=== PATIENT | female | born 1975 | race Caucasian/White ===

== ENCOUNTER 2016-03-18 23:54 | Observation (INO) | payer MEDICARE ==
[~2016-03-18] VITALS: Ht 160 cm; Wt 40.8 kg
[~2016-03-18 23:54] MED LIST: BISA10SU3 RECTAL; MILKSUS PO; ONDA4TAB7 PO; PERC7.5T13 PO; PROC25SU22 RECTAL; PROT40TA PO; SENN1TAB PO; [UNRECOGNIZED DRUG - CODE] PO
[2016-03-19] MEDS ORDERED: DEXA4TAB PO (00:03)
[2016-03-19 04:11] VITALS: BP 119/79; PULSE 78; RESP 19; TEMP 96.7; O2SAT 99
[2016-03-19] MEDS ORDERED: NALOXONE HCL 0.4 MG/ML AMP IV PRN (05:45)
[2016-03-19] MEDS ORDERED: BISACODYL 10 MG SUPP RECTAL PRN (05:45)
[2016-03-19] MEDS ORDERED: ONDANSETRON HCL 4 MG/2 ML VIAL IV PUSH PRN (05:45)
[2016-03-19] MEDS ORDERED: SODIUM CHLORIDE 0.9% FLUSH 5 ML FLUSH FLUSH PRN (05:45)
[2016-03-19] MEDS ORDERED: PROCHLORPERAZINE 25 MG SUPP RECTAL PRN (05:45)
[2016-03-19] MEDS: DEXAMETHASONE SOD PHOS 4 MG/ML VIAL IV PUSH SCH ×2 (06:07→11:53)
[2016-03-19] MEDS: HYDROmorphone HCL PF 1 MG/ML VIAL IV PUSH PRN ×4 (06:07→17:01)
[2016-03-19 08:00] VITALS: BP 121/80; PULSE 77; RESP 18; TEMP 97.4; O2SAT 97
[2016-03-19 08:00] LABS: BASOPHIL % 0.3 % (0.0-2.0); HEMATOCRIT 39.2 % (35.0-46.0); HEMO FLAGS DIFF FINAL; LYMPH % 5.8 % (9.0-44.0); LYMPHOCYTE # 0.6 TH/MM3 (1.0-4.8); MEAN CELL VOLUME 84.9 FL (80.0-100.0); MEAN CORPUSCULAR HEMOGLOBIN 29.5 PG (27.0-34.0); MEAN CORPUSCULAR HGB CONC 34.8 % (32.0-36.0); NEUT % 91.9 % (16.0-70.0); PLATELET COUNT 449 TH/MM3 (150-450); RED BLOOD COUNT 4.61 MIL/MM3 (4.00-5.30); RED CELL DISTRIBUTION WIDTH 14.3 % (11.6-17.2); WHITE BLOOD COUNT 10.8 TH/MM3 (4.0-11.0)
[2016-03-19 08:28] LABS: POTASSIUM 4.4 MEQ/L (3.5-5.1)
[2016-03-19] MEDS ORDERED: PANTOPRAZOLE SOD 40 MG DELAYED RELEASE TAB PO SCH (09:00)
[2016-03-19] MEDS ORDERED: SODIUM CHLORIDE 0.9% FLUSH 5 ML FLUSH FLUSH SCH (09:00)
--- NOTE | 2016-03-19 11:06 | HHI.HP ---
[facility] Admission Diagnosis Diagnoses: (1) Glioma of brainstem (2) Headache (3) Obstructive hydrocephalus (4) Neurofibromatosis type II (5) Impaired cognition (6) Brain mass Chief Complaint: Headache Travel History International Travel<30 Days: No Contact w/Intl Traveler <30 Da: No Traveled to Known Affected Are: No History of Present Illness 40-year-old female with a medical history significant for neurofibromatosis, glioma of the brain stem, kidney stones, impaired cognitive function. The patient was transferred to the medical floor from [facility]. The patient was initially admitted there on 03/13/16 for comprehensive rehabilitation after she was discharged from the [facility] after undergoing decompressive ventriculostomy for hydrocephalus. During her stay at the rehabilitation facility, over the past couple of days she has been having increasing headache. Last night she was noted to have nausea and nystagmus. The patient was admitted to the medical floor for IV steroid until transfer can be a ranch back to [facility] for continuing treatment. The patient is seen in her room. Currently complains of a headache that is unchanged compared to yesterday and noted that she is due for her pain medication. She can answer yes or no questions and have a simple conversation. She deferred to her mother at bedside for most of the history. They both indicated that they want to go back to [facility] to continue her care. Currently she denies dizziness or any focal weakness. No shortness of breath, no nausea and no change in her vision. 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 Left facial nerve surgeries for neurofibroma lesions Allergies: Coded Allergies: Morphine (Verified Allergy, Mild, 03/13/16) Codeine (Verified Allergy, Unknown, 01/08/16) *MDRO Multi-Drug Resistant Organism (Verified Adverse Reaction, Unknown, ) ESBL E.Coli (urine)-03/13/16 Family History Mother with history of spasmodic torticollis and facial dystonia Patient has 2 children one of whom at the age of 17 from neurofibromatosis. She has a female daughter who is 21 and alive and well. Social History No tobacco or alcohol. She admits to occasional marijuana use. Physical Exam Vital Signs Vital Signs Date Time Temp Pulse Resp B/P Pulse Ox O2 Delivery O2 Flow Rate FiO2 03/19/16 08:00 97.4 77 18 121/80 97 03/19/16 04:11 96.7 78 19 119/79 99 Physical Exam GENERAL: Cachectic appearing female. SKIN: Multiple macular lesions involving the left face HEAD: Right frontal area with a healing incision. Stitches in place. Left facial defect from extensive surgery in the frontotemporal region and around the eye. EYES: Pupils equal round and reactive. Extraocular motions intact. ENT: Nose without drainage. Throat without erythema, tonsillar hypertrophy or exudate. Uvula midline. Airway patent. NECK: Trachea midline. No JVD or lymphadenopathy. Supple, nontender, no meningeal signs. CARDIOVASCULAR: Regular rate and rhythm without murmurs, gallops, or rubs. RESPIRATORY: Clear to auscultation. Breath sounds equal bilaterally. No wheezes , rales, or rhonchi. GASTROINTESTINAL: Abdomen soft, non-tender, nondistended. No hepato-splenomegaly , or palpable masses. No guarding. MUSCULOSKELETAL: Extremities without clubbing, cyanosis, or edema. No joint tenderness, effusion, or edema noted. No calf tenderness. Negative Homans sign bilaterally. NEUROLOGICAL: Awake and alert. Cranial nerves II through XII intact. Motor and sensory grossly within normal limits. Five out of 5 muscle strength in all muscle groups. Normal speech. Laboratory Laboratory Tests Test 03/19/16 07:40 White Blood Count 10.8 Red Blood Count 4.61 Hemoglobin 13.6 Hematocrit 39.2 Mean Corpuscular Volume 84.9 Mean Corpuscular Hemoglobin 29.5 Mean Corpuscular Hemoglobin 34.8 Concent Red Cell Distribution Width 14.3 Platelet Count 449 Mean Platelet Volume 7.4 Neutrophils (%) (Auto) 91.9 Lymphocytes (%) (Auto) 5.8 Monocytes (%) (Auto) 2.0 Eosinophils (%) (Auto) 0.0 Basophils (%) (Auto) 0.3 Neutrophils # (Auto) 10.0 Lymphocytes # (Auto) 0.6 Monocytes # (Auto) 0.2 Eosinophils # (Auto) 0.0 Basophils # (Auto) 0.0 CBC Comment DIFF FINAL Differential Comment Sodium Level 138 Potassium Level 4.4 Chloride Level 106 Carbon Dioxide Level 23.0 Anion Gap 9 Blood Urea Nitrogen 14 Creatinine 0.83 Estimat Glomerular Filtration 76 Rate Random Glucose 111 Calcium Level 9.5 Result Diagram: 03/19/16 0740 03/19/16 0740 Imaging Brain MRI from 03/18/16: Progression of the patient's known disease involving the CP angle on the left extending down to the brainstem to the level of the cerebral peduncles. Assessment and Plan Problem List: (1) Glioma of brainstem ICD Code: C71.7 Status: Chronic (2) Headache ICD Code: R51 Status: Acute (3) Neurofibromatosis type II ICD Code: Q85.02 Status: Chronic (4) Brain mass ICD Code: G93.9 Status: Acute (5) Hydrocephalus in adult ICD Code: G91.9 Status: Acute Assessment and Plan 40-year-old female with neurofibromatosis and glioma involving the brain stem. Patient was admitted to [facility] for comprehensive rehabilitation. However she continues to have persistent headache and nausea. Brain MRI revealed progression of the patient's glioma involving the brain stem. Plan: I discussed the case with Dr. Ayoub and Elva SANDERS from [facility] was been in contact with the patient's oncologist at [facility]. Best plan would be to have the patient transferred to the [facility] to resume her medical care there. - Meanwhile we will continue with IV Decadron and Dilaudid IV for pain control. - Consult case management to arrange for transfer. Armando Gupta MD Mar 19, 2016 11:06
[2016-03-19 12:00] VITALS: BP 115/80; PULSE 81; RESP 19; TEMP 97.6; O2SAT 98
[2016-03-19 15:42] VITALS: BP 120/70; PULSE 81; RESP 18; TEMP 97.6; O2SAT 98
--- NOTE | 2016-03-19 17:18 | RC ---
cc: JAM LINDQUIST MD, RONALD J. M.D. DEVERAS, RUBY ANNE E. M.D. DATE OF SERVICE 03/19/2016 DATE OF 1975 DIAGNOSES 1. Brainstem glioma. 2. Headache. 3. Obstructive hydrocephalus. 4. Neurofibromatosis type 2. 5. Impaired cognition. 6. Brain mass. BRIEF HISTORY This is a lady who was transferred from [facility] to the general inpatient setting. She has a long history of neurofibromatosis type 2 with left facial nerve surgeries for neurofibroma lesions and impaired vision of the left eye with left facial weakness. She has also been diagnosed with a brainstem glioma for approximately 15 years, although it is my understanding no biopsy has been performed in that time period. She was recently transferred from the [facility] after undergoing a third ventriculostomy on 03/05/2016 and she was brought to [facility] for recovery and rehabilitation. Since being in the hospital, however with admission date March 13 she has developed headaches associated with vomiting and some symptoms of insomnia. On 03/18/2016 she had a repeat MRI of her brain performed showing progression of the patient's known disease involving the ___ angle on the left extending into the brainstem to the level of the cerebral peduncles. At that point [facility] was in contact with her physicians at the [facility] and it was decided to transfer her to the acute care setting in preparation for transfer back to [facility]. In discussing this with a sister and mother who was present today this patient has had discussions with [facility]. The point of rehab was to try to build her strength so that she could then go on and have some further neurosurgical procedures followed by radiation treatment. At this time as she is deteriorating, the immediate consideration is whether she should be proceeding with treatment at this time, but she has a team involved at the [facility] to advise her on this. I have discussed this with her nurse today and the inward toll operator and they are in the process of arranging a transfer although the whole process has not been completed. PAST MEDICAL AND SURGICAL HISTORY Includes: 1. Type 2 neurofibromatosis. 2. Presumed glioma of the brain stem. 3. Kidney stones. 4. She has had endoscopic third ventriculostomy on 03/05/2016. 5. Lithotripsies and cystoscopy for kidney stones. 6. Left facial nerve surgeries for neurofibroma. ALLERGIES INCLUDE MORPHINE, CODEINE AND SHE HAS MULTIPLE DRUG RESISTANCE TO E-COLI. FAMILY HISTORY AND SOCIAL HISTORY There is no tobacco or alcohol use, although there is a history of occasional marijuana use. The mother has a history of spasmodic torticollis and facial dystonia. The patient herself has two children, one of whom at age 17 from neurofibromatosis and a female daughter who is alive and well. PHYSICAL EXAMINATION The patient is a cachectic female. She has scars on her left facial region from multiple surgeries. She is awake and responsive. At this point there is very little for radiation treatment to offer her at this facility. She has a team of physicians who know her case and are going to see to her care when she is transferred to [facility]. I have discussed this at length with the family. They had multiple questions which I was able to answer for them and for which they were grateful. At this junction I will discharge from her care. Thank you nevertheless for asking us to see her and be able to help the family with their questions they have. Denis Diaz MD Radiation Oncologist RORY/WILBER /3:51 PM /4:44 PM
== END 2016-03-19 17:17 | disposition short-term general hospital (02) ==
LOC: INTOOBSV 03-19 03:36 → N07B 03-19 03:36
PROVIDERS: ADMIT Family Medicine; ATTEND Family Medicine
DX: C71.7 Malignant neoplasm of brain stem (principal); Q85.02 Neurofibromatosis, type 2; G91.1 Obstructive hydrocephalus; H55.00 Unspecified nystagmus; R51 Headache
CPT/HCPCS: 80048; 85025; 97162; G0378; G8987; G8988; J1100; J1170; J2405; 99221